=== PATIENT | female | born 1935 | race Caucasian/White ===

== ENCOUNTER → 2019-10-03 | Outpatient (CLI) | payer OTHER ==
[~2019-10-03] VITALS: Ht 160 cm; Wt 49.9 kg
[~2019-10-03] MED LIST: ASA81BEC PO; BIOTIN0.5 GM PO; CALCIUM 500 +1 EAC5 PO; D3 + K2 DOTS 11 EACH PO; LEXAPRO20 MG PO; LIPITOR20 MG PO; NORVASC2.5 M1 PO; TRAMADOL 50 MG50 MG PO
[2019-10-03 06:58] VITALS: BP 138/59
[2019-10-03 07:06] LABS: HEMATOCRIT 38.9 % (37.0-47.0); HEMOGLOBIN 12.6 gm/dL (12.0-15.0); MCH 31.3 pg (26.0-34.0); MCHC 32.3 g/dL (28.0-37.0); MCV 96.8 fL (80.0-100.0); RBC 4.02 mil/uL (4.20-5.00); RDW 12.6 % (10.5-14.5); WBC 5.1 thou/uL (4.0-11.0)
[2019-10-03 07:16] LABS: CALCIUM 9.7 mg/dL (8.5-10.1); POTASSIUM 3.9 mmol/L (3.5-5.1)
--- NOTE | 2019-10-03 07:51 | EKG ---
[address] [place] [address] [facility] [place] [address] ELECTROCARDIOGRAM REPORT Name: FLOWER TATE Room #: REG CHARLIE Glenn#: [id number] Admission: 10/03/19 Attend Phys: Jonathan Parrish MD, Discharge: Date of : 39 Report #: [id number] THIS REPORT FOR: //name// [facility] Test Date: 2019-10-03 Test Time: 07:36:55 Pat Name: FLOWER TATE Department: Room: Gender: F Flat Surfacer: VICTOR MANUEL : 1935 Requested By: Jonathan Parrish Order Number: [id number] MD: Med Acuña Measurements Intervals [place] Rate: 55 P: 90 OR: 197 QRS: 111 QRSD: 164 T: 35 QT: 477 QTc: 457 Interpretive Statements Sinus rhythm Rightward axis Right bundle branch block No previous ECG available for comparison Electronically Signed On 10-03-2019 7:51:33 [employer] MACHINE [employer] by Med Acuña [email or web address] <ELECTRONICALLY SIGNED> By: Med Acuña MD, [facility] 10/03/19 0751 [id number] [id number] Med Acuña MD, FACC /EPI
--- NOTE | 2019-10-03 17:52 | CATHLAB ---
[facility] [address] [place] [address] INVASIVE PROCEDURE REPORT Name: FLOWER TATE Room #: REG LISHA Elizabeth#: [id number] Admission: 10/03/19 Attend Phys: Jonathan Parrish, Discharge: Date of : 39 Report #: [id number] THIS REPORT FOR: //name// APPROVED REPORT Study performed: 10/03/2019 07:40:46 Patient Details Patient Status: Out-Patient Room #: The patient is a 84 year-old female Event Personnel Jonathan Parrish Assistant Casino Shift Manager, Ryan Molina RN, Garett Yap RTR Rashi Alan David Monitor Procedures Performed Left Heart Cath w/or w/o Coronaries [id number] [facility] Indication Chest pain Procedure Narrative The Right Groin^ was infiltrated with 1% Lidocaine subcutaneous anesthesia. A PINNACLE 6FR Sheath #[id number] sheath was inserted into the RFA^. Coronary angiography was performed using coronary diagnostic catheters. The right coronary system was accessed and visualized with a JR4 catheter. The left coronary system was accessed and visualized with a JL4 catheter. The left ventricle was accessed and visualized with a PIGTAIL catheter. Left ventriculogram was performed in 30 degree projection. An aortogram of the abdominal aorta was performed. Closure device was deployed with a 6 Fr MYNXGRIP 6/7F #[id number]. The patient tolerated the procedure well and there were no complications associated with the procedure. There was no hematoma. Intraoperative Conscious Sedation Sedation start time: 8.38 Case end Time: 8.57 Versed 1 mg Fluoro Time: 1.27 minutes Dose: DAP 1414.00 cGycm2 168 mGy Contrast Type and Amount: Visipaque 110 ml Hemodynamics [facility] [address] [place] [address] INVASIVE PROCEDURE REPORT Name: FLOWER TATE Room #: WHITNEY Elizabeth#: [id number] Admission: 10/03/19 Attend Phys: Jonathan Parrish, Discharge: Date of : 39 Report #: [id number] The aortic pressure is 121/49 mmHg with a mean of 41 mmHg. The left ventricular pressure is 121/3 mmHg with a mean of mmHg. The left ventricular end diastolic pressure is 15 mmHg. Conclusion #1 normal left ventricular size and systolic function EF 60% #2 abdominal aortogram is intact no aneurysm no stomach and disease or stenosis renal arteries appear patent. Tortuosity is noted. #3 left main free of disease giving rise to LAD and circumflex #4 LAD with mild irregularities extensive the apex is a diffusely disease attenuated vessel distally. No indication for intervention #5 small nondominant diffusely diseased circumflex. #6 dominant right coronary artery without occlusive disease widely patent. Recommendations plan: Continue aggressive risk factor modification. No indication for coronary intervention. <ELECTRONICALLY SIGNED> By: Jonathan Parrish MD, FACC 10/03/191751 51 51 Jonathan Parrish MD, FACC /INF
== END | disposition home or self-care (01) ==
LOC: CATH 09-29 11:44
PROVIDERS: Internal Medicine Cardiovascular Disease
DX: R07.9 Chest pain, unspecified (principal); I25.10 Atherosclerotic heart disease of native coronary artery without angina pectoris; I10 Essential (primary) hypertension; E78.5 Hyperlipidemia, unspecified; F32.9 Major depressive disorder, single episode, unspecified; M19.90 Unspecified osteoarthritis, unspecified site; Z98.890 Other specified postprocedural states; Z79.899 Other long term (current) drug therapy; Z88.8 Allergy status to other drugs, medicaments and biological substances; Z79.82 Long term (current) use of aspirin

== ENCOUNTER → 2019-11-14 | Outpatient (CLI) | payer OTHER | LOC: CAT 15:02 | DX: N20.0 Calculus of kidney (principal); N28.1 Cyst of kidney, acquired; M47.815 Spondylosis without myelopathy or radiculopathy, thoracolumbar region; Z79.899 Other long term (current) drug therapy ==

== ENCOUNTER → 2020-03-28 | Outpatient (CLI) | payer OTHER ==
[~2020-03-28] MED LIST changes: +ARICEPT10 M1 PO; +ESTRACE2 MG PO; +FAMOTIDINE20 MG PO; +FLONASE 0.05%50 MCG NASAL; +KEPPRA 500 MG500 MG PO; +METAMUCIL0.4 GM PO; +VITAMIN D31250 MCG PO
== END ==
LOC: SJCVCIMAG 11:09
PROVIDERS: ATTEND Internal Medicine Cardiovascular Disease
DX: R94.31 Abnormal electrocardiogram [ECG] [EKG] (principal); I45.10 Unspecified right bundle-branch block; I65.23 Occlusion and stenosis of bilateral carotid arteries; I08.1 Rheumatic disorders of both mitral and tricuspid valves; I49.5 Sick sinus syndrome; I10 Essential (primary) hypertension; Z79.899 Other long term (current) drug therapy

== ENCOUNTER 2020-03-29 07:47 | Observation (INO) | payer OTHER ==
[~2020-03-29] VITALS: Ht 160 cm; Wt 53.5 kg
[2020-03-29] VITALS (13 sets, daily range): BP systolic 113–138; BP diastolic 50–68
--- NOTE | ~2020-03-29 | P ---
[facility] [place] [address] PROCEDURE REPORT Name: NATALIA TATE Room #: 212-P [facility] Elizabeth#: [id number] Admission: 03/29/20 Attend Phys: Kody Ram MD Discharge: 03/30/20 Date of : 39 Report #: [id number] THIS REPORT FOR: cc: Tucker Block James L. DO Couchonnal, Luis F. MD ~ CC: Tucker Ram PROCEDURE: Pacemaker implantation. PREOPERATIVE DIAGNOSES: 1. Sick sinus syndrome. 2. Syncope. POSTOPERATIVE DIAGNOSES: 1. Sick sinus syndrome. 2. Syncope. HISTORY OF PRESENT ILLNESS: The patient is an 84-year-old female who a month ago was admitted at an outside hospital after she had a syncopal episode and she was noted to have bradycardia down into the 20s. The pacemaker was not placed at that time; however, she again presented to another outside hospital after near syncope. She was seen in clinic and noted to be demonstrating sinus bradycardia into the 30s and 40s. She is here for dual chamber pacemaker implantation. ANESTHESIA: The patient underwent MAC anesthesia with no anesthesia related complications. DESCRIPTION OF PROCEDURE: The patient underwent informed consent. We discussed the details of the procedure including the risks, which include but not limited to bleeding, infection, vascular damage, cardiac perforation and pneumothorax. She and her family consented to the procedure. The patient was brought to the EP laboratory in a fasting and unsedated state and prepped and draped in a sterile fashion. She received IV antibiotics and underwent a venogram showing patency of left axillary vein. Next, I injected lidocaine below the level of left clavicle. Incision was made, pocket was created over prepectoral fascia and access was obtained twice to left axillary vein using the extrathoracic approach with sheaths positioned using the modified Seldinger technique. Next, a lead was positioned into the right ventricular mid septum and an atrial lead was placed into the right atrial appendage both with adequate pacing and sensing thresholds. Leads were sutured to the prepectoral fascia. Device was connected, tested and found to be functioning normally. Pocket was irrigated with vancomycin. The pocket was closed in 2 layers and surgical glue was placed outer skin layer. The patient awoke neurologically and [address] [address] PROCEDURE REPORT Name: NATALIA TATE [facility] Elizabeth#: [id number] Admission: 03/29/20 Attend Phys: Kody Ram MD Discharge: 03/30/20 Date of : 39 Report #: [id number] hemodynamically intact. No complications and no significant bleeding. Implanted pacemaker was a Medtronic model #W3DR01, serial #[id number]. Atrial lead was a Medtronic model #5076, serial #[id number]. RV lead was a Medtronic model #5076, serial #[id number]. The atrial lead demonstrated a P-wave of 1.4 millivolts, the pacing impedance of 532 ohms and a pacing threshold of 0.75 volts at 0.4 milliseconds. The RV lead demonstrated R-wave of 5.9 millivolts, pacing impedance of 589 ohms and the pacing threshold 0.5 volts at 0.4 milliseconds. The device was programmed to the DDDR 60-130 mode. CONCLUSIONS: 1. Successful dual-chamber pacemaker implantation. 2. Satisfactory atrial and ventricular pacing and sensing thresholds. By: 1220 1238 Kody Ram MD /nt
[~2020-03-29 07:47] MED LIST changes: -ARICEPT10 M1 PO; -ESTRACE2 MG PO; -FAMOTIDINE20 MG PO; -FLONASE 0.05%50 MCG NASAL; -KEPPRA 500 MG500 MG PO; -METAMUCIL0.4 GM PO; -VITAMIN D31250 MCG PO
[2020-03-29] MEDS ORDERED: VITAMIN D31250 MCG PO (09:08)
[2020-03-29] MEDS ORDERED: ESTRACE2 MG PO (09:09)
[2020-03-29] MEDS ORDERED: KEPPRA 500 MG500 MG PO (09:10)
[2020-03-29] MEDS ORDERED: FAMOTIDINE20 MG PO (09:10)
[2020-03-29] MEDS ORDERED: ARICEPT10 M1 PO (09:11)
[2020-03-29] MEDS ORDERED: FLONASE 0.05%50 MCG NASAL (09:12)
[2020-03-29] MEDS ORDERED: METAMUCIL0.4 GM PO (09:13)
[2020-03-29 09:14] LABS: APTT 22.4 Seconds (24.5-32.8); PROTIME 10.5 Seconds (9.3-11.4)
--- NOTE | 2020-03-29 19:41 | NUR ---
POST OP PACEMAKER PT ARRIVED 1500. ALERT X4 FROM HOME WITH . JENNIFER PAIN, DENIIES SOB, INCISION SITE C/D/I. HOB ELEVATED PER PROTOCOL. POST CARDIOLOGY VS INTERVENTION IN PLACE. PT EDUCATED TO KEEP HOB TO 45 DEGREE FOR 6 HOURS. CALL FOR ASSISTANCE. USED BEDPAIN TO VOID. NO PUSH OR PULL ON LEFT ARM KEEP IMMOBILIZER INPLACE. ADMISSION ASSESMENT, EDUCATION, AND HISTORY COMPLETED. FALL PRECAUTIONS IN PLACE. CALLS FOR ASSISTANCE.
[2020-03-30 00:15] VITALS: BP 125/60
[2020-03-30 01:04] VITALS: BP 113/53
--- NOTE | 2020-03-30 03:10 | NUR ---
PATIENT ASSESSED AND IS ALERT X 4. SKIN WARM AND DRY. RESP EVEN AND UNLABORED. ON ROOM AIR. TELE- SHOWS NSR PACED. HAD A LEFT SHOULD INCISION THAT IS APPROXIMATE. WITH DURABOND, HAS SLEFT SHOPULD IMMOBILIZER IN PLACE. NO SKIN ISSUES. UP TO BATHROOM AND VOIDS WELL. NO PULLING OR PUSHING WITH ARM. INSTRUCTIONS VOICED TO PATIENT. HOB UP 45%. DAUGHT ER CALLED AND RN GAVE A REPORT TO HER. NPO AFTER MIDNIGHT. SKIN OK. PAIN TO LEFT ARM. DR THOMPSON CALLED [facility] RECEIVED AN ORDER FOR TRAMADOL. PAIN MED GIVEN AND SHE WENT TO SLEEP. KONRAD GALEAS NEEDS AT PRESENT. SL'S LOOK HEALTHY. IS AT RIGHT FA AND LEFT AC. CONT PLAN OF CARE.
[2020-03-30 04:45] VITALS: BP 113/53; BP 113/64
[2020-03-30 07:33] VITALS: BP 128/68
[2020-03-30 09:36] VITALS: BP 128/68
--- NOTE | 2020-03-30 09:50 | NUR ---
[facility], ALERT X4, LEFT IMMOBILIZER IN PLACE. REVIEWED POST PACEMAKER PLACEMENT. FOLLOW UP WITH CARDIOLOGY PER SCHEDULE APPOINTMENT. STAND BY WITH ADL'S. CXRAY AND INTERIGATIONS OF PACEMAKER COMPLETED. DC HOME WITH SELF CARE. TELE AND IV'S REMOVED.
== END 2020-03-30 10:45 | disposition home or self-care (01) ==
LOC: CATH 07:47 → 2N 15:27
PROVIDERS: ADMIT Internal Medicine Cardiovascular Disease
DX: R00.1 Bradycardia, unspecified (principal); I49.5 Sick sinus syndrome; R55 Syncope and collapse; Z95.0 Presence of cardiac pacemaker
CPT/HCPCS: 62110; 62900; 70005

== ENCOUNTER → 2020-05-02 | Outpatient (CLI) | payer OTHER ==
[~2020-05-02] MED LIST changes: +ARICEPT10 M1 PO; +ESTRACE2 MG PO; +FAMOTIDINE20 MG PO; +FLONASE 0.05%50 MCG NASAL; +KEPPRA 500 MG500 MG PO; +METAMUCIL0.4 GM PO; +VITAMIN D31250 MCG PO
== END ==
LOC: SJCVC 16:53
PROVIDERS: ATTEND Internal Medicine Cardiovascular Disease
DX: Z45.018 Encounter for adjustment and management of other part of cardiac pacemaker (principal); R94.31 Abnormal electrocardiogram [ECG] [EKG]; I45.10 Unspecified right bundle-branch block; I49.5 Sick sinus syndrome; Z79.899 Other long term (current) drug therapy

== ENCOUNTER → 2020-05-09 | Outpatient (CLI) | payer OTHER | LOC: SJCVCIMAG 08:02 | PROVIDERS: ATTEND Internal Medicine Cardiovascular Disease | DX: I08.1 Rheumatic disorders of both mitral and tricuspid valves (principal); Z95.0 Presence of cardiac pacemaker ==

== ENCOUNTER → 2020-06-27 | Outpatient (CLI) | payer OTHER | LOC: SJCVC 15:05 | PROVIDERS: ATTEND Internal Medicine Cardiovascular Disease | DX: Z45.018 Encounter for adjustment and management of other part of cardiac pacemaker (principal); I45.10 Unspecified right bundle-branch block; R94.31 Abnormal electrocardiogram [ECG] [EKG]; R55 Syncope and collapse; I49.5 Sick sinus syndrome; I10 Essential (primary) hypertension; E78.5 Hyperlipidemia, unspecified; E03.9 Hypothyroidism, unspecified; M19.90 Unspecified osteoarthritis, unspecified site; Z79.899 Other long term (current) drug therapy ==

== ENCOUNTER → 2020-08-13 | Outpatient (CLI) | payer OTHER | LOC: BC 09:25 | PROVIDERS: ATTEND Obstetrics & Gynecology | DX: Z12.31 Encounter for screening mammogram for malignant neoplasm of breast (principal) ==

== ENCOUNTER → 2021-07-03 | Outpatient (CLI) | payer OTHER | LOC: SJCVCIMAG 07:53 | PROVIDERS: ATTEND Internal Medicine Cardiovascular Disease | DX: I07.1 Rheumatic tricuspid insufficiency (principal); I27.20 Pulmonary hypertension, unspecified; R94.31 Abnormal electrocardiogram [ECG] [EKG]; I45.4 Nonspecific intraventricular block; I49.5 Sick sinus syndrome; R06.00 Dyspnea, unspecified; R53.83 Other fatigue; I10 Essential (primary) hypertension; E78.5 Hyperlipidemia, unspecified; Z79.899 Other long term (current) drug therapy; E03.9 Hypothyroidism, unspecified; Z95.0 Presence of cardiac pacemaker; Z88.8 Allergy status to other drugs, medicaments and biological substances; M19.90 Unspecified osteoarthritis, unspecified site ==

== ENCOUNTER → 2021-12-25 | Outpatient (CLI) | payer OTHER | LOC: SJCVC 13:39 | PROVIDERS: ATTEND Internal Medicine Cardiovascular Disease | DX: R94.31 Abnormal electrocardiogram [ECG] [EKG] (principal); I48.0 Paroxysmal atrial fibrillation; I48.3 Typical atrial flutter; I10 Essential (primary) hypertension; F32.9 Major depressive disorder, single episode, unspecified; E78.5 Hyperlipidemia, unspecified; R00.1 Bradycardia, unspecified; E03.9 Hypothyroidism, unspecified; F41.9 Anxiety disorder, unspecified; Z95.0 Presence of cardiac pacemaker; Z88.8 Allergy status to other drugs, medicaments and biological substances; Z88.7 Allergy status to serum and vaccine; Z79.899 Other long term (current) drug therapy; Z72.89 Other problems related to lifestyle ==